=== PATIENT | male | born 1960 | race Two or more races ===

== ENCOUNTER 2021-01-19 07:00 | Day surgery (SDC) | payer SELFPAY ==
[2021-01-19 07:45] LABS: Absolute Lymphocyte Count 2.45 X10^3/uL (0.83-4.51); Absolute Neutrophil Count 2.4 X10^3/uL (2.0-7.7); Basophil# 0.03 X10^3/uL; Basophil% 0.5 % (0-1); Eosinophil# 0.17 X10^3/uL; Hematocrit 41.3 % (40-54); Hemoglobin 13.7 g/dL (13.0-16.5); Lymphocyte # 2.45 X10^3/ul (0.83-4.51); Lymphocyte % 43.8 % (19-41); Mean Corp Hgb Conc 33.2 g/dL (32-36); Mean Corpuscular Hgb 29.2 pg (27.0-32.0); Mean Corpuscular Volume 88.1 fL (80-94); Mean Platelet Vol. 9.9 fl (6.2-12.0); Monocyte# 0.58 X10^3/uL; Monocyte% 10.4 % (0-10); NRBC Flagged by Analyzer 0 % (0-5); Neutrophil # 2.37 X10^3/uL (2.7-7.7); Neutrophil % 42.3 % (47-70); Platelet Count 287 K/mm3 (150-450); RBC Distribution Width CV 12.8 % (11.6-14.6); Red Blood Count 4.69 M/mm3 (4.6-6.2); White Blood Count 5.6 K/mm3 (4.4-11.0)
[2021-01-19 07:55] LABS: Anion Gap 3 (5-15); BUN 10 mg/dL (7-18); BUN/Creat Ratio 9.3 RATIO (10-20); Calcium,Total 9.1 mg/dL (8.5-10.1); Chloride 107 mmol/L (98-107); Creatinine, Serum 1.08 mg/dL (0.70-1.30); EST Glomerular Filtration Rate 75 mL/min (>60); Est Glom Filt Rate - Afr Amer 90 mL/min (>60); Glucose 100 mg/dL (74-106); Potassium 4.3 mmol/L (3.5-5.1); Sodium Level 140 mmol/L (136-145)
--- NOTE | 2021-01-19 08:11 | RAD_ITS ---
STUDY: X-RAY CHEST REASON FOR EXAM: Male, 60 years old. Chest pain TECHNIQUE: PA and lateral views of the chest. COMPARISON: None. FINDINGS: There is hyperinflation of the lungs consistent with chronic obstructive lung disease (COPD). There is no demonstrated pleural abnormality. Normal size heart. Normal mediastinum and bárbara. Normal visualized pulmonary arteries. There is atherosclerotic calcification of the aortic arch with tortuosity. There are diffuse degenerative changes of the visualized thoracic spine. Normal visualized ribs, clavicles, and shoulders. There is no demonstrated abnormality of the visualized soft tissue structures of the upper abdomen. RAD/Chest PA and Lateral IMPRESSION: Hyperinflation. The lungs are clear. Electronically Signed: Rashad Mccullough MD at 8:32 EST , Service support ,
[2021-01-19 09:05] VITALS: BMI 31.4
[2021-01-19 11:00] LABS: AST(SGOT) 21 U/L (15-37); Alanine Aminotransfer ALT/SGPT 25 U/L (16-61); Albumin, Serum 3.3 g/dL (3.2-5.0); Alkaline Phosphatase 94 U/L (45-117); Bilirubin, Direct 0.06 mg/dL (0.00-0.30); Cholesterol 175 mg/dL (200); Globulin 4.3 g/dL (2.2-4.2); High Density Lipoprotein 42 mg/dL; Protein, Total 7.6 g/dL (6.4-8.2); Triglycerides 88 mg/dL; Very Low Density Lipoprotein 18 mg/dL (5-40)
--- NOTE | 2021-01-19 11:15 | CL.D_ITS ---
Patient Name: CARLOS WALKER Study Date: 01/19/2021 Performing: Gera Sol MD Ht: 68.89 inches 175 cm : 1960 Wt: 213.85 lbs 97 kg Age: 60 Gender: male BSA: 2.12 PROCEDURE(S) PERFORMED DC01-(26794)LHC/COR/LV IC10-(01815)FFR, CORONARY OR GRAFT, INITIAL VESSEL CLINICAL PROFILE AND INDICATIONS Indications: Suspected CAD Heart Failure: None Stress/Imaging Stress/Image Study Performed: No CAD Presentations: Unstable angina. CONCLUSIONS Diffuse ruby vessel disease with an occluded right coronary artery with [id number] collaterals, moderately severe disease in the left anterior descending artery, moderately severe disease noted in the first obtuse marginal branch with in-stent stenosis, and moderate disease noted in the diagonal v essel. RECOMMENDATIONS Recommend for FFR which demonstrated significant stenosis of less than 0.6 thus suggesting severe pro ximal LAD disease which could not be stented due to the previous diagonal stent encroaching on the LA D. Surgery consult for coronary revascularization DESCRIPTION OF PROCEDURE The patient arrived to the procedure lab. The risks and benefits of the procedure as well as a full d escription of our services here and current unavailability of surgical backup were fully explained to the patient and/or their significant other prior to the catheterization. The Timeout was completed, verifying the correct patient and procedure. The patient's procedural site was prepped and draped in the usual fashion. Local anesthetic was given subcutaneously to right radial region with Lidocaine 2% . Using a modified Seldinger technique, arterial access was obtained via the right radial artery, a 6 Fr sheath was inserted. Right Coronary Artery selective angiography was then performed in multiple v iews using a 5 Fr. 4.0 [place] catheter. Left Coronary Artery selective angiography was performed in mu ltiple views using a 5 Fr. 4.0 [place] catheter. Left Ventriculography was performed in MOLINA projection using a 5 Fr. Pigtail catheter. LV to AO pullback pressures were then recorded.The arterial sheath was pulled and a TR Band was applied for hemostasis CORONARY ANGIOGRAPHY DOMINANCE: Right Dominant LEFT HEART ASSESSMENT Left Ventricular Ejection Fraction: by LV Gram 50 % Inferior Mid Hypokinesis - Moderate Normal Left Ventricular systolic function LEFT MAIN: Angiographically normal LEFT ANTERIOR DESCENDING ARTERY: Moderately severe disease noted in the proximal left anterior descen ding artery and moderate disease noted in the left anterior descending artery. DIAGONAL 1: Proximal - First diagonal vessel previously stented which is patent with moderate in-sten t stenosis CIRCUMFLEX ARTERY: Previously placed stent in the first obtuse marginal branch is noted to have in-st ent stenosis of approximately 70% and a long segment, [place] circumflex artery with 40 to 50% stenosi s previously angioplastied RIGHT CORONARY ARTERY: Dominant right coronary artery which is occluded in the proximal to mid segmen t with distal left to right collaterals COMPLICATIONS No Complications PROCEDURE MEDICATIONS Versed 1 mg IV Fentanyl 50 mcg IV Versed 1 mg IV Versed 1 mg IV Oxygen: 2 L/min via nasal cannula Adenosine 6.3 mg IV @ 01/19/2021 11:17:29 Heparin given IA 01/19/2021 10:30:38 Heparin 5000 unit(s) IV 01/19/2021 11:08:26 Verapamil 2.5mg, Ntg 100mcgs, 2000 units of Heparin given IA 01/19/2021 10:30:38 IV Fluids: .9 NaCl IV started @ 100 ml/hr 01/19/2021 11:44:22 SUMMARY OF HEMODYNAMIC DATA Time AIR REST ECG 09:24:04 Art 165/88 (117) 10:26:37 AO 127/88 (105) SA 10:36:40 LV 127/11, 24 10:44:24 LV 131/9, 21 10:44:35 LV 112/14, 24 10:45:22 LV 112/13, 19 10:45:28 LVp 117/13, 20 10:45:33 AOp 126/82 (104) 10:45:38 RM AIR REST 11:14:34 Signed By Gera Sol MD On 01/19/2021 12:07:17 PM Signed By Gera Sol MD On 01/19/2021 11:25:19 AM Signed By Gera Sol MD On 01/19/2021 11:14:22 AM Gera Sol MD
--- NOTE | 2021-01-19 14:07 | CL.I_ITS ---
Patient Name: CARLOS WALKER Study Date: 01/19/2021 Performing: Sivakumar Sheets MD Ht: 68.89 inches 175 cm : 1960 Wt: 213.85 lbs 97 kg Age: 60 Gender: male BSA: 2.12 PROCEDURE(S) PERFORMED IC10-(42672)FFR, CORONARY OR GRAFT, INITIAL VESSEL CLINICAL PROFILE AND CO-MORBIDITIES Indications: Suspected CAD Heart Failure: None Stress/Imaging Stress/Image Study Performed: No CAD Presentations: Unstable angina. CONCLUSIONS FFR in the LAD is 0.51. PCI of the LAD could not be performed due to inability to pass the balloon as described RECOMMENDATIONS DESCRIPTION OF PROCEDURE The patient arrived to the procedure lab. The risks and benefits of the procedure as well as a full d escription of our services here and current unavailability of surgical backup were fully explained to the patient and/or their significant other prior to the catheterization. The Timeout was completed, verifying the correct patient and procedure. The patient's procedural site was prepped and draped in the usual fashion. Local anesthetic was given subcutaneously to right radial region with Lidocaine 2% Using a modified Seldinger technique,arterial access was obtained via the right radial artery, a 6Fr sheath was inserted. Right Coronary Artery selective angiography was then performed in multiple view s using a 5 Fr. 4.0 [place] catheter. Left Coronary Artery selective angiography was performed in multi ple views using a 5 Fr. 4.0 [place] catheter. Left Ventriculography was performed in MOLINA projection usi ng a 5 Fr. Pigtail catheter. LV to AO pullback pressures were then recorded.The images were reviewed and options discussed. A decision was then made to proceed with an Intervention, IVUS o r other adjunct procedure. xb3 Guide catheter was inserted and engaged into the LCA. The FFR/iFR wire was inserted. The FFR/ iFR wire was then removed. bmw Guide wire was advanced to the LAD. emerge 3.00 x 12 Balloon catheter was advanced across lesion in the LAD, mid. Angiogram performed pre balloon dilatation. The arteria l sheath was pulled and a TR Band was applied for hemostasis INTERVENTION INFORMATION LESION SITE: LAD (Mid) Lesion Devices: [employer] 6 English GuideLiner COMPLICATIONS No Complications PROCEDURE MEDICATIONS Versed 1 mg IV Fentanyl 50 mcg IV Versed 1 mg IV Versed 1 mg IV Oxygen: 2 L/min via nasal cannula Adenosine 6.3 mg IV @ 01/19/2021 11:17:29 Heparin given IA 01/19/2021 10:30:38 Heparin 5000 unit(s) IV 01/19/2021 11:08:26 Verapamil 2.5mg, Ntg 100mcgs, 2000 units of Heparin given IA 01/19/2021 10:30:38 IV Fluids: .9 NaCl IV started @ 100 ml/hr 01/19/2021 11:44:22 SUMMARY OF HEMODYNAMIC DATA Time AIR REST ECG 09:24:04 Art 165/88 (117) 10:26:37 AO 127/88 (105) SA 10:36:40 LV 127/11, 24 10:44:24 LV 131/9, 21 10:44:35 LV 112/14, 24 10:45:22 LV 112/13, 19 10:45:28 LVp 117/13, 20 10:45:33 AOp 126/82 (104) 10:45:38 RM AIR REST 12:07:34 Signed By Sivakumar Sheets MD On 01/19/2021 2:08:01 PM Sivakumar Sheets MD
== END 2021-01-19 14:37 | disposition home or self-care (01) ==
PROVIDERS: Referring Provider Internal Medicine Cardiovascular Disease; Visit Provider Internal Medicine Cardiovascular Disease
DX: I25.110 Atherosclerotic heart disease of native coronary artery with unstable angina pectoris (principal); T82.855A Stenosis of coronary artery stent, initial encounter; I10 Essential (primary) hypertension; E78.5 Hyperlipidemia, unspecified; Z95.5 Presence of coronary angioplasty implant and graft; Z79.899 Other long term (current) drug therapy
CPT/HCPCS: 36415; 71046; 80048; 80061; 80076; 85025; 93306; 93458; 93571; 99152; 99153; J0153; Q9967; C1725; C1769; C1887; C1894